=== PATIENT | male | born 1970 | race Caucasian/White ===

== ENCOUNTER 2017-03-01 19:19 | Emergency (ER) | payer OTHER | END 2017-03-01 19:55 | disposition home or self-care (01) | LOC: ER 19:19 | DX: K08.89 Other specified disorders of teeth and supporting structures (principal); F17.200 Nicotine dependence, unspecified, uncomplicated; Z88.2 Allergy status to sulfonamides | CPT/HCPCS: 99282 ==

== ENCOUNTER 2017-03-02 10:06 | Emergency (ER) | payer OTHER | END 2017-03-02 11:00 | disposition home or self-care (01) | LOC: ER 10:06 | DX: K04.7 Periapical abscess without sinus (principal); Z88.2 Allergy status to sulfonamides | CPT/HCPCS: 99282 ==